=== PATIENT | male | born 1960 | race Caucasian/White ===

== ENCOUNTER 2016-08-31 13:45 | Inpatient (IN) | payer BC ==
[~2016-08-31] VITALS: Ht 190.5 cm; Wt 84.9 kg
--- NOTE | ~2016-08-31 | CON ---
PATIENT'S NAME: MARIANO ARROYO [facility] AGE: 56 Y [address] ROOM: [place] [address] [place]ATION: [facility] [place] ADMIT DATE: 08/31/2016 Consultation DISCHARGE DATE: FAMILY PHYSICIAN: PHYSICIAN, UNKNOWN ATTENDING PHYSICIAN: MICHELE DELEON Consult for Ms Nneka Greene, physician physicians assistant. This 56-year-old gentleman is referred for rehab evaluation, admitted on 08/31/2016 with sudden onset of right-sided weakness (feeling funny) with slurring of speech, taken to outside hospital. CT scan of the brain reportedly was negative for any gross abnormality; however, MRI done here on 09/01/2016 showed 2 x 1 cm diffusion restriction in the superior right cerebellum, showing signs consistent with ischemic infarct with minor nonspecific white matter changes, mostly secondary to small-vessel ischemia. 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 At the present time, he is alert and oriented. VITALS: Blood pressure 131/83, temperature 97.3, pulse 66, respirations 18. He is 6 feet 3 inches tall and weighs 84.9 kg. He can move bilateral upper and lower extremity fairly well. He still feels that he is not very much in control of the right upper extremity well. However, he can ambulate without much difficulty. He is stable on standing, very little if any leans to the right. He has good bowel and bladder control. No facial droop. He has very minimum right distant temporal visual neglect. At the present time, his speech is clear, can swallow without difficulty. Tongue and soft palate are moving symmetrical. Deep tendon reflexes are present and equal throughout. He is on the following medications: 1. Protonix. 2. Aspirin. 3. Lipitor. 4. Tylenol. 5. Humibid. 6. NaCl 0.9%. 7. Zithromax. 8. Rocephin. 9. Dulera. 10. Folic acid. 11. Thiamine. PATIENT'S NAME: MARIANO ARROYO [facility] AGE: 56 Y [address] ROOM: [place] [address] LOCATION: [facility] [place] ADMIT DATE: 08/31/2016 Consultation DISCHARGE DATE: FAMILY PHYSICIAN: PHYSICIAN, UNKNOWN ATTENDING PHYSICIAN: MICHELE DELEON 12. Lovenox. At the present time, he is doing well. I feel that he can go on outpatient basis, if he consistently continues to do well. However, if he is not able to, we will re-evaluate him for possible GIRP admission. At the present time, if he is discharged, he should not drive until he is re-evaluated. He should follow with his family physician as soon as possible and also I would like to see him in 3 weeks in my office. Thank you for this referral. All the above was explained to him. He verbalized understanding and agreement. TANYA RUBIO MD WMTed/modl /[id number] d: 09/02/16 1045 t: 09/02/16 1519, CONSULTATION REPORT
--- NOTE | ~2016-08-31 | HP ---
PATIENT'S NAME: MARIANO ARROYO [facility] AGE: 56 Y [address] ROOM: [place] [address] LOCATION: [facility] [place] ADMIT DATE: 08/31/2016 History & Physical DISCHARGE DATE: FAMILY PHYSICIAN: PHYSICIAN, UNKNOWN ATTENDING PHYSICIAN: MICHELE DELEON DATE OF SERVICE: CHIEF COMPLAINT: Right-sided weakness and slurred speech. HISTORY OF PRESENT ILLNESS: A 56-year-old gentleman with a past medical history of lung infection status post bronchoscopy done in [place] almost a year ago, presented to the [place] [facility] when his right side started feeling "funny.". He stated that he just could not control right arm and his leg and it was behaving abnormally. He did endorse having some weakness. Significant other also stated that he had been having slurred speech since then. He was taken to the [place] [facility] where a CAT scan was done, which was negative for any acute changes but does have age-related cerebellar atrophy. A chest x-ray was also done, which was abnormal and a CAT scan was done, which did show right lower lobe cavitary lesion as well as tracheal and right main stem debris. He was transferred here for further medical care. On my encounter, he stated that the funny feeling of his right arm has resolved and he does not feel any weakness anymore. His significant other still states that he still has slurred speech. He says that he has been a little more short of breath than usual. He has been producing sputum as well. He denied any weight loss or any travel history outside [facility]. He denied any fever or chills. No abdominal pain. No burning on urination. No constipation or diarrhea. He denied any dizziness or any headache at this point. ALLERGIES: THE PATIENT IS ALLERGIC TO CODEINE. PAST MEDICAL HISTORY: Significant for pulmonary infection for which he had a bronchoscopy done [place]. We will obtain those medical records. FAMILY HISTORY: Significant for coronary artery disease in dad. SOCIAL HISTORY: The patient has been a lifelong one pack per day smoker. He also consumes alcohol daily. No other illicit drug abuse noted. PATIENT'S NAME: MARIANO ARROYO [facility] AGE: 56 Y [address] ROOM: [place] [address] LOCATION: [facility] [place] ADMIT DATE: 08/31/2016 History & Physical DISCHARGE DATE: FAMILY PHYSICIAN: PHYSICIAN, UNKNOWN ATTENDING PHYSICIAN: MICHELE DELEON A REVIEW OF SYSTEMS: All other systems reviewed and were negative except for what is mentioned in the HPI. PHYSICAL EXAMINATION: VITAL SIGNS: Blood pressure 140/67, 67, afebrile, 20. GENERAL: No acute distress. Alert and oriented x3. HEENT: Head: Atraumatic, normocephalic. Eyes: Nonicteric. No pallor. Oropharynx, dry mucous membranes. CARDIOVASCULAR: S1, S2. No murmurs, gallops, or rubs. LUNGS: Bilateral scattered crackles. ABDOMEN: Soft, nontender, nondistended. Bowel sounds present. EXTREMITIES: No clubbing, cyanosis, or edema. PSYCH: Normal affect, mood, and speech. NEURO: Cranial nerves 2 through 12 intact. No motor or sensory deficit noted. LABORATORY DATA: Lab work and imaging done at outside hospital. As stated, right lower lobe upper segment cavitary lesion with surrounding inflammation as well as right mainstem debris. A CAT scan of the head showed age consistent cerebellar atrophic but no acute changes. Rest of the lab work including troponin, BMPs and CBC were unremarkable. Urinalysis and urine drug screen was also unremarkable. ASSESSMENT: 1. Slurred speech and right-sided weakness. 2. Right lower lobe cavitary pneumonia. 3. Tobaccoism. 4. Alcohol abuse. PLAN: We are going to admit this patient to the hospital. We will start intravenous fluids and antibiotics for this pneumonia. At this point, I believe this merits a pulmonary consult. We will obtain AFB, sputum samples, to rule to rule out tuberculosis. HIV testing will be done as well. Current antibiotics will be ceftriaxone and Rocephin. Based on sputum cultures, we will change those. Regarding his slurred speech, we are going to get an MRI of the head with and without contrast. Based on the results, we will decide with the Neurology consult. Thiamine folic acid supplementation. Diet, regular diet until midnight. I also have a suspicion for aspiration. We will get a modified barium swallow as well, as well as a bedside swallow study. Lovenox for DVT prophylaxis. SCDs. PATIENT'S NAME: MARIANO ARROYO [facility] AGE: 56 Y [address] ROOM: [id number] [place], [place] [address] LOCATION: [facility] [place] ADMIT DATE: 08/31/2016 History & Physical DISCHARGE DATE: FAMILY PHYSICIAN: PHYSICIAN, HERRERA ATTENDING PHYSICIAN: MICHELE DELEON MD PRAVIN KOTHARI/modl /[id number] D: [id number] T: [id number] HISTORY & PHYSICAL
--- NOTE | ~2016-08-31 | CON ---
PATIENT'S NAME: MARIANO ARROYO [facility] AGE: 56 Y [address] ROOM: [place] [address] [place] [facility] [place] ADMIT DATE: 08/31/2016 Consultation DISCHARGE DATE: FAMILY PHYSICIAN: PHYSICIAN, UNKNOWN ATTENDING PHYSICIAN: MICHELE DELEON DATE OF CONSULTATION: 09/02/2016 CHIEF COMPLAINT: Right-sided weakness and slurred speech. HISTORY OF PRESENT ILLNESS: This is a 56-year-old gentleman with a past history of lung infection. He has had previous bronchoscopies in [place] and presented to the [place] [facility] stating his right side felt funny. He said he could not control his right arm and leg and it was behaving abnormally. He did say he had some weakness also. His significant other also volunteered that he did have some slurred speech. A CAT scan was done, which did show some cerebellar atrophy, but no other findings. A chest x-ray and a CAT scan of his lungs were done and did show a right lower lobe cavitary lesion as well as tracheal and right stem debris. He was transferred here for further medical care. At the time of our exam, he states his weakness has gone, however, his gait is definitely leaning towards the right. He states his speech is back to normal. His main issues now as far as he is concerned are his shortness of breath and is producing sputum. He has denied any vision issues with this and denied any headache. Denied any weight loss. He has not traveled to any place outside [facility]. He has had no fever or chills. ALLERGIES: THE PATIENT IS ALLERGIC TO CODEINE. PRIOR MEDICAL HISTORY: Significant for pulmonary infection, for which he has had a bronchoscopy done in [place]. FAMILY HISTORY: His father did have coronary artery disease, age unknown. SOCIAL HISTORY: The patient is a lifelong one pack per day smoker. He also consumes alcohol. His alcohol use is on a daily basis. No other illicit drug use noticed. REVIEW OF SYSTEMS: All other systems reviewed and negative except for what is mentioned in the HPI. PATIENT'S NAME: MARIANO ARROYO [facility] AGE: 56 Y [address] ROOM: [place] [address] [place] [facility] [place] ADMIT DATE: 08/31/2016 Consultation DISCHARGE DATE: FAMILY PHYSICIAN: PHYSICIAN, UNKNOWN ATTENDING PHYSICIAN: MICHELE DELEON PHYSICAL EXAMINATION: VITAL SIGNS: Blood pressure 130/62, heart rate 68. He is afebrile and respirations 20. GENERAL: The patient is in no acute distress. Slightly disheveled. Alert and oriented x3. HEENT: Head is atraumatic and normocephalic. Eyes, nonicteric. No pallor. CARDIOVASCULAR: S1 and S2 without murmur, rub, or gallop. LUNGS: Bilateral scattered crackles. ABDOMEN: Soft, nontender, and nondistended with bowel sounds present. EXTREMITIES: No clubbing, cyanosis, or edema. NEURO: His cranial nerves II through XII are intact. His NIH stroke scale is as follows: 1. 1A. 0. 2. 1B. Level of consciousness questions 0. 3. 1C. LOC commands 0. 4. Gaze 0. 5. Visual 0. 6. Facial palsy 0. 7. Motor arm left 0. 8. 5B motor arm right 0. 9. 6A motor leg left 0. 10. 6B motor leg right 0. 11. Limb ataxia 1. 12. Sensory 0. 13. Best language 0. 14. Dysarthria 0. 15. Extinction and attention 0. Of note, he has slight dysmetria to his right hand and has an ataxic gait, especially to the right. The MRI did show a superior right cerebellum infarct about 2 x 1 cm. Additional testing reveals an LDL of 57. ASSESSMENT AND PLAN: 1. Acute stroke. The patient has been placed on aspirin and appropriate statin therapy. His risk factors include smoking, which we discussed at length with the patient. The patient has a strong desire to quit smoking. 2. Rehabilitation. The patient is receiving PT/OT and speech therapy currently. 3. Echocardiogram is still pending as well as carotid Doppler. If both of these tests are negative, we would consider an extended cardiac monitoring to rule out atrial fibrillation. Thank you for the opportunity to take care of this patient. Dr. Gutierrez and I examined the patient, reviewed the chart and spent a total of 40 minutes with PATIENT'S NAME: MARIANO ARROYO [facility] AGE: 56 Y [address] ROOM: [address] [address] [place] [facility] [place] ADMIT DATE: 08/31/2016 Consultation DISCHARGE DATE: FAMILY PHYSICIAN: PHYSICIAN, UNKNOWN ATTENDING PHYSICIAN: MICHELE DELEON this patient. The plan of care was relayed to the hospitalist team. The plan of care was discussed with the patient and his significant other and all questions were answered satisfactorily. KORIN LARA APRN FOR MICHELE DELEON MD PP/melody /[id number] d: 09/02/162020 t: 09/06/16 1202, CONSULTATION REPORT
--- NOTE | ~2016-08-31 | CON ---
PATIENT'S NAME: MARIANO ARROYO [facility] AGE: 56 Y [address] ROOM: [place] [address] [place]: [facility] [place]MIT DATE: 08/31/2016 Consultation DISCHARGE DATE: FAMILY PHYSICIAN: PHYSICIAN, UNKNOWN ATTENDING PHYSICIAN: MICHELE DELEON DATE OF CONSULTATION: 09/02/2016 ADDENDUM: I was asked to see this patient in Telemedicine consultation. Consultation was performed in conjunction with the nurse practitioner, Elizabeth Avendaño APRN, on 09/02/2016. History was reviewed with the nurse practitioner, chart was reviewed. Imaging reports and the images were reviewed prior to the evaluation of the patient. The patient was reassessed and examined with the nurse practitioner present. Assessment and plan was discussed and I agree with the discussed assessment and plan of care. Total time spent between nurse practitioner and physician and evaluating the patient, 40 minutes. Annemarie Gutierrez MD Neurology Telespecialist Services MD ALVA ALVAREZ/modl /[id number] CC: [employer] TELEMEDICINE d: t: 09/03/16 0839, CONSULTATION REPORT
--- NOTE | ~2016-08-31 | ECHO ---
Transthoracic Echocardiography Report (TTE) Demographics Patient Name MARIANO ARROYO Date of Study 09/02/2016 Patient Number [id number] Visit Number [id number] Date of 1960 Room Number G3223 Accession Number [id number] Gender Male Age 56 year(s) Referring Jc Yan Director Transition Christian Rey RDCS, Physician RVT Physician Interpreting Beto Barnett Fast Food Delivery Driver Physician Gabi GUTIERREZ Supervising Ordering Physician Jc Yan MD/MLP Nurse Stress Manager Equipment Conclusions Contractility Score Summary Normal Left Ventricular contractility was noted. Summary Technically difficult exam. The estimated left ventricular ejection fraction is 50-55%. Diastolic assessment reveals Grade II pseudonormal diastolic function . Normal right ventricular systolic performance. Mildly dilated right ventricle. The right atrium is mildly dilated. Dilated IVC with poor inspiratory collapse consistent with elevated RA pressure. Negative bubble study. Trivial tricuspid regurgitation by color Doppler. There is mild pulmonary hypertension. The pulmonary pressure (RVSP) is 44.38 mmHg. Procedure Type of Study TTE procedure:2D Echocardiogram. Procedure Date Date: 09/02/2016 Start: 01:06 PM Study Location: Inpatient Portable Technical Quality: Limited visualization due to lung interference. Indications:CVA. Appropriate Use Criteria: 9 Patient Status: Routine Contrast Medium: Bubble Study. HR: 61 bpm M-Mode/2D Measurements LV Diastolic Dimension: 5.03 cm LV Systolic Dimension: 3.58 cm LV Septum Diastolic: 0.8 cm LV PW Diastolic: 0.86 cm Cardiac Output: 4.81 l/min LA Dimension: 2.3 cm LVOT: 2.3 cm LVOT VTI: 19 cm RV Base: 3.88 cm LV Stroke volume: 78.9 ml RV Length: 7.75 cm TAPSE: 2.51 cm TDI-S': 14.3 cm/s Doppler Measurements AV Peak Velocity: 0.93 m/s MV Peak E-Wave: 0.73 m/s AV Peak Gradient: 3.47 mmHg MV Peak A-Wave: 0.66 m/s AV Mean Gradient: 2 mmHg MV E/A Ratio: 1.11 LVOT Peak Velocity: 0.9 m/s MV P1/2t: 94 msec TR Gradient:29.38 mmHg PV Peak Velocity: 0.75 m/s Estimated RAP:15 mmHg PV Peak Gradient: 2.26 mmHg Estimated RVSP: 44 mmHg Estimated PASP: 44.38 mmHg E' Septal Velocity: 0.07 m/s A' Septal Velocity: 0.1 m/s E' Lateral Velocity: 0.1 m/s A' Lateral Velocity: 0.16 m/s Findings Left Ventricle Diastolic assessment reveals Grade II pseudonormal diastolic function . The left ventricle is normal in size . Right Ventricle Normal right ventricular systolic performance. Mildly dilated right ventricle. Left Atrium Normal left atrial size. Right Atrium The right atrium is mildly dilated. Dilated IVC with poor inspiratory collapse consistent with elevated RA pressure. Negative bubble study. Mitral Valve Normal mitral valve structure and function. Aortic Valve Normal aortic valve structure and function. Tricuspid Valve Trivial tricuspid regurgitation by color Doppler. There is mild pulmonary hypertension. The pulmonary pressure (RVSP) is 44.38 mmHg. Pulmonic Valve Normal pulmonic valve structure and function. Pericardial Effusion No evidence of pericardial effusion. Miscellaneous Visualized portions of the aortic root and ascending aorta appear normal in size. Pleural Effusion No evidence of pleural effusion. Contractility Score LV regional wall motion:(0-Non visualized 1-Normal 2-Hypokinesis 3-Akinesis 4-Dyskinesis 5-Aneurysm) Signature dtt: Refugio Pérez dtd: 09/02/16 1656 Physician Self Edit
--- NOTE | ~2016-08-31 | DS ---
PATIENT'S NAME: MARIANO ARROYO [facility] AGE: 56 Y [address] ROOM: [address] [place], [place] [address] LOCATION: [facility] [place] ADMIT DATE: 08/31/2016 Discharge Summary DISCHARGE DATE: 09/03/2016 FAMILY PHYSICIAN: Rafael Allen MD ATTENDING PHYSICIAN: Eleazar Rose DISCHARGE DIAGNOSES: 1. Right superior cerebellum, acute ischemic infarct. 2. Chronic obstructive pulmonary disease. 3. Pzfhi-[id number] respiratory failure. 4. Tobaccoism. 5. Alcohol use. HOSPITAL COURSE: Please refer to admitting history and physical as dictated by Dr. Rose. Briefly, the patient was admitted to [facility] with right-sided weakness and slurred speech, which had subsequently resolved prior to his admission. CT of his chest showed right lower lobe cavitary pneumonia. The patient was admitted he was started on ceftriaxone 1 g IV every 24 hours. He was placed in airborne isolation. He was also started on azithromycin IV daily. MRI of his brain was ordered. Pulmonology was consulted. Pulmonology felt as though he should continue the antibiotics for now and felt as though the right upper lobe abnormality in his lung was chronic and almost certainly not TB or cancer. He was taken out of airborne isolation. His antibiotics were continued until his respiratory culture was negative. He was noted to have same right arm ataxia as well as gait ataxia. MRI did come back and show a right superior cerebellum acute ischemic infarct. Neurology was consulted. He was started on Lipitor 80 mg p.o. daily and aspirin 81 mg p.o. daily. Carotid Dopplers were obtained of his neck, which did show 1-39% stenosis bilaterally. Calcified plaque at the bulb bilaterally. Echocardiogram did show mild bleed dilated right atrium and ventricle. Negative bubble study. It did also reveal mild pulmonary hypertension. Neurology did recommend to continue the aspirin and statin as well as terminal manager monitoring specialist for possible atrial fibrillation. Dr. Villarreal was consulted, it was recommended that he continue outpatient therapies. Modified barium swallow was performed, which recommended regular diet with thin liquids. The patient did improve throughout his stay. He was initially on oxygen on admit, which was weaned off. Tobacco cessation was discussed. He was up ambulatory with therapies. Arm ataxia and gait had improved. We did attempt to set up a [facility] monitor upon discharge, however, this was not able to be arranged. We did call and discuss his care with Dr. Daniel Allen, the patient's primary care provider. We will have Dr. Allen set up the outpatient [facility] monitor as an outpatient. On 09/03/2016, the patient's vital signs were stable. He was on room air. It was felt as though he was stable to be discharged. Follow up with his family physician in 5 days. PATIENT'S NAME: MARIANO ARROYO [facility] AGE: 56 Y [address] ROOM: [address] [place], [place] [address] LOCATION: [facility] [place] ADMIT DATE: 08/31/2016 Discharge Summary DISCHARGE DATE: 09/03/2016 FAMILY PHYSICIAN: Rafael Allen MD ATTENDING PHYSICIAN: Eleazar Rose LABORATORY DATA: Sodium stable at 141 and 142, potassium 4.1, fasting glucose is 92 and 93, BUN 9 to 12, creatinine 0.6 to 0.7. Fasting lipid panel, cholesterol 111, triglycerides 55, HDL 43, and LDL 57. Hemoglobin A1c 5.2, TSH 0.490, WBCs 4.7, hemoglobin 12.9, hematocrit 40.9, platelets 151, and procalcitonin less than 0.05. Sputum culture, no acid-fast bacilli. Normal respiratory antionette. Urine negative for Legionella and strep pneumo antigens. RADIOLOGY REPORTS: MRI of the brain showed small acute infarct in the superior right cerebellum. Echocardiogram: EF 50-55%. Grade 2 pseudo, normal diastolic function. Mildly dilated right ventricle and atrium. Negative bubble study. Mild pulmonary hypertension. Carotid Dopplers right and left internal carotid artery has mild 1-39% plaque and stenosis calcific plaque at the bulb bilaterally. DISCHARGE INSTRUCTIONS: The patient will be discharged to home. Diet: As tolerated. Activity: As tolerated with cane. Followup appointment with Dr. Villarreal in 3 weeks. Followup appointment with Dr. Daniel Allen in 5 days. No driving and should not operate any mechanical devices until cleared by PCP. monitoring specialist to be arranged by Dr. Allen. DISCHARGE MEDICATIONS: 1. Aspirin 81 mg p.o. daily. 2. Lipitor 80 mg p.o. daily. 3. Folic acid 1 mg p.o. daily. 4. Vitamin B1 100 mg p.o. daily. 5. Dulera 200/5 two puffs twice daily. Thank you for allowing us to participate in the care of this patient, as he has been hospitalized at [facility]. COOPER CHEN APRN FOR MD KAREN DRAKE/modeddie /[id number] d: 09/05/16215 t: 09/09/16 1652, DISCHARGE SUMMARY
--- NOTE | ~2016-08-31 | ENPV ---
Carotid Duplex Study Demographics Patient Name MARIANO ARROYO Date of Study 09/02/2016 Patient Number [id number] Gender Male Date of 1960 Age 56 Visit Number [id number] Height 75 Accession Number [id number] Weight 187 Referring Jc Calhoun MD Physician Physician Physician Ordering Physician Jc Yan Elementary Assistant Teacher [employer] Repairer Jose A Khalil BS, RT Conclusions Summary The right internal carotid artery has mild, 1-39%, plaque and stenosis. The left internal carotid artery has mild, 1-39%, plaque and stenosis. The right vertebral artery is present with antegrade flow. The left vertebral artery is present with antegrade flow. Calcific plaque at the bulb bilaterally. Procedure Type of Study: Cerebral:Carotid, Carotid Doppler Bilateral. Indications for Study:Stroke. Patient Status:Routine. Study Location:Inpatient Portable. Technical Quality:Adequate visualization. Velocities are measured in cm/s ; Diameters are measured in cm Carotid Right Measurements Carotid Left Measurements + +--------+--------+ + + + +--------+ --------+ + + !Location !PSV !EDV !Angle !%Stenosis ! !Location !PSV ! EDV !Angle !%Stenosis ! + +--------+--------+ + + + +--------+ --------+ + + !Prox CCA !83 !18 !60 ! ! !Prox CCA !108 ! 24 !60 ! ! + +--------+--------+ + + + +--------+ --------+ + + !Dist CCA !90 !23 !60 ! ! !Dist CCA !90 ! 28 !60 ! ! + +--------+--------+ + + + +--------+ --------+ + + !Prox ICA !80 !24 !60 ! ! !Prox ICA !77 ! 26 !60 ! ! + +--------+--------+ + + + +--------+ --------+ + + !Dist ICA !86 !30 !60 ! ! !Dist ICA !76 ! 26 !60 ! ! + +--------+--------+ + + + +--------+ --------+ + + !Prox ECA !98 ! !60 ! ! !Prox ECA !85 ! !60 ! ! + +--------+--------+ + + + +--------+ --------+ + + !Vertebral !39 ! !60 ! ! !Vertebral !58 ! !60 ! ! + +--------+--------+ + + + +--------+ --------+ + + !Subclavian !109 ! !60 ! ! !Subclavian !149 ! !60 ! ! + +--------+--------+ + + + +--------+ --------+ + + - There is antegrade vertebral flow noted on the right side. - There is antegrade verte bral flow noted on the left side. - Add'l Measurements:ICAPSV/CCAPSV 1.03.ICAEDV/CCAEDV 1.69. - Add'l Measurements:ICAPS V/CCAPSV 0.71.ICAEDV/CCAEDV 1.12. Signature dtt: WYATT ATKINSON dtd: 09/02/16 0840 Physician Self Edit
--- NOTE | 2016-08-31 17:24 | NUR ---
Admission note: Patient is admitted from [place] per EMS for right sided weakness and encephalopathy. Stroke screen was negative. Patient is not complaining of weakness upon arrival. CAM assessment is normal. Has no known allergies. Currently does not take any medications. Pt states has been told that he has COPD but does not have inhalers or treatment for this. Pt has a hx of psoriasis. Skin assessment is negative except for red dots to upper body, looks like bug bites. Pt reported vomiting this morning, has not had any since then, no complaints of nausea or pain. Has had headaches but none today. Does smoke 1pk/day. Had left great toe bone removed. Has top dentures, no bottom teeth. Does have an occasional congested cough.Pt states on occasion he will get some yellow phlegm up. VSS, on 2 liters per NC on arrival. Has IV to left anterior FA, currently saline locked. Family at bedside.
[2016-08-31 20:54] LABS: CREATININE 0.7 mg/dL (0.6-1.3); ESTIMATED GFR (MDRD EQUATION) > 60
--- NOTE | 2016-09-01 05:05 | NUR ---
Significant Event: A/O X3 AND COOPERATIVE WITH CARES. PLACED IN [place]/CONTACT ISOLATION DUE TO ABNORMAL CT FINDINGS (CAVITARY LESION ON LUNG) AND ONGOING TESTING (AFB SPUTUM SAMPLES). TRIED TO COLLECT 1 SPUTUM SAMPLE TONIGHT BUT LAB SAID THAT THERE WAS TOO MUCH SALIVA, SO STILL NEED [address] RAMON CONSULTED AND WILL SEE THIS AM. WILL HAVE MRI OF BRAIN THIS AM. PT/OT TO FOLLOW. CURRENTLY NPO IN CASE MD WANT TO DO ANYTHING. LUNG SOUNDS CLEAR/DIMINISHED IN UPPER LOBES AND CRACKLES IN BASED. HAS LOOSE COUGH WITH OCCASIONAL THICK YELLOW SPUTUM. IV TO L) FA FLUSHES WELL. IV FLUIDS INFUSING AT 150ML/HR FOR 1.5 LITERS (1ST GOING). ON IV ATB. COLLECTED UA. ON RT TREATMENTS. NO CONFUSION NOTED ON MY SHIFT, PATIENT REALLY TIRED. REALLY NO SLURRED SPEECH NOTED EITHER. Follow up:
[2016-09-01 06:01] LABS: BASOPHIL # 0.1 K/uL (0.0-0.2); BASOPHIL % 1.1 %; EOSINOPHIL # 0.1 K/uL (0.0-0.5); EOSINOPHIL % 1.8 %; HEMATOCRIT 43.7 % (37.0-53.0); HEMOGLOBIN 13.5 g/dL (12.0-17.0); IMMATURE GRANULOCYTE % 0.2 %; LYMPHOCYTE # 1.3 K/uL (0.8-4.0); LYMPHOCYTE % 28.5 %; MCH 30.1 pg (27.0-34.0); MCHC 30.9 gm/dL (32.0-36.5); MCV 97.5 fl (83.0-98.0); MONOCYTE # 0.4 K/uL (0.0-1.0); MONOCYTE % 8.8 %; MPV 10.5 fl (9.4-12.4); NEUTROPHIL # (ANC) 2.7 K/uL (1.4-9.0); NEUTROPHIL % 59.6 %; NRBC % 0 /100WBC (0-0.00); PLATELET COUNT 158 K/uL (150-450); RBC 4.48 M/uL (4.00-6.00); RDW-CV 14.5 % (11.9-14.6); WBC 4.5 K/uL (4.0-11.0)
[2016-09-01 06:16] LABS: ANION GAP 7.1 (10.0-19.0); BLOOD UREA NITROGEN 9 mg/dL (6-24); CALCIUM 8.1 mg/dL (8.5-10.5); CHLORIDE 109 mMol/L (96-110); CO2 30 mMol/L (22-32); CREATININE 0.7 mg/dL (0.6-1.3); ESTIMATED GFR (MDRD EQUATION) > 60; POTASSIUM 4.1 mMol/L (3.7-5.1); SODIUM 142 mMol/L (135-145)
--- NOTE | 2016-09-01 15:35 | NUR ---
Introduced self/role to patient, his Krissy and their two daughters. The only need they could think of was possibly a walker. Gave them the list of DME providers in [place] and put a script next to his orders for a front wheeled walker. Denied any other barriers to going home or at home. Add my name to his marker board, will continue to follow.
--- NOTE | 2016-09-01 17:29 | NUR ---
Significant Event:Is A/O.Out of isolation.Sputum x1 to lab.Alittle slurred speech.LILLIAN.Hand grasps equal.Tele put on.IV Lt.forearm.Up with 1 and walk.Found he had a stroke before coming here.Eating & drinking well.Is someone unsteady on feet.Do neuro checks & vitals every 2hrs.Next due at 1900.No c/o pain. Follow up:
--- NOTE | 2016-09-02 05:08 | NUR ---
SIGNIFICANT EVENT: Pt alert/oriented this shift. VSS on RA. Regular diet. Q4h vitals and neuro checks. NTU nurse will come over 1x per shift to complete stroke checklist. PIV to R) FA infusing intermittent IV antibiotics. 1PA with walker and gaitbelt for transfers. Spouse at bedside. Pleasant and cooperative with cares.
[2016-09-02 05:53] LABS: BASOPHIL # 0.1 K/uL (0.0-0.2); BASOPHIL % 1.1 %; EOSINOPHIL # 0.1 K/uL (0.0-0.5); HEMATOCRIT 40.9 % (37.0-53.0); HEMOGLOBIN 12.9 g/dL (12.0-17.0); IMMATURE GRANULOCYTE % 0.2 %; LYMPHOCYTE # 1.4 K/uL (0.8-4.0); LYMPHOCYTE % 28.5 %; MCH 30.7 pg (27.0-34.0); MCHC 31.5 gm/dL (32.0-36.5); MCV 97.4 fl (83.0-98.0); MONOCYTE # 0.5 K/uL (0.0-1.0); MONOCYTE % 10.1 %; MPV 10.4 fl (9.4-12.4); NEUTROPHIL # (ANC) 2.7 K/uL (1.4-9.0); NEUTROPHIL % 57.1 %; NRBC % 0 /100WBC (0-0.00); PLATELET COUNT 151 K/uL (150-450); RDW-CV 14.6 % (11.9-14.6); WBC 4.7 K/uL (4.0-11.0)
[2016-09-02 06:02] LABS: ANION GAP 8.1 (10.0-19.0); BLOOD UREA NITROGEN 12 mg/dL (6-24); CHLORIDE 108 mMol/L (96-110); CO2 29 mMol/L (22-32); CREATININE 0.6 mg/dL (0.6-1.3); ESTIMATED GFR (MDRD EQUATION) > 60; POTASSIUM 4.1 mMol/L (3.7-5.1); SODIUM 141 mMol/L (135-145)
--- NOTE | 2016-09-02 14:52 | NUR ---
CONSULT RECEIVED PER ROUTINE STROKE ORDERS. IF APPROPRIATE, DIET ED WILL COMPLETED PRIOR TO D/C.
--- NOTE | 2016-09-02 15:51 | NUR ---
Significant Event:Is A/O.Has had no c/o pain.Hand grasps are equally strong.LILLIAN.States has more control of his Rt.arm/hand and Rt.leg today.Has been working with P.T.and O.T.Has tele on---no calls.States having some diarrhea today.Voiding ok.Eating well.Amb.with use of cane.Some weakness Rt.side.Had swallowing study today. Follow up:
--- NOTE | 2016-09-03 03:56 | NUR ---
Pt. alert and oriented. VSS. RA. 1 assist. R) side weakness. Strong hand grisps, bilaterally. Nurse to come from NTU x1 per shift to do stroke checklist. Telemetry - no calls. IV to R) forearm - saline locked. Intermittant IV antibx. Uses urinal. Denies pain. Coughs up phlegm. Eating well. Will work with outpatient PT when discharged. at bedside. Cooperative and pleasant with cares.
--- NOTE | 2016-09-03 11:00 | NUR ---
Followed up with patient and his . Still denied any needs or barriers to going home. stated she thinks he will only need a cane. May discharge today, they are aware.
[2016-09-03] MEDS ORDERED: ASPIRIN (CHILDR81 MG PO (13:51)
[2016-09-03] MEDS ORDERED: LIPITOR80 MG PO (13:53)
[2016-09-03] MEDS ORDERED: THIAMINE HCL100 MG PO (13:54)
[2016-09-03] MEDS ORDERED: FOLIC ACID1 MG PO (13:54)
[2016-09-03] MEDS ORDERED: DULERA 200 MCG/51 EA INH (13:55)
--- NOTE | 2016-09-03 14:46 | NUR ---
DISCHARGE: D: ORDERS RECEIVED FOR THE PATIENT TO BE DISCHARGED TO HOME TODAY WITH HIS . I: DISMISSAL INSTRUCTIONS WERE PREPARED AND REVIEWED WITH THE PATIENT AND HIS VIRTUALLY. THE FOLLOWING INFORMATION WAS DISCUSSED INCLUDING [employer]RAMES TEACHING SHEETS PROVIDED: WHAT IS ISCHEMIC STROKE, SYMPTOMS OF STROKE, WHAT IS EVENT MONITORING, ASPIRIN, LIPITOR, FOLIC ACID, THIAMINE, DULERA AND PREVENTING DVT. REVIEWED FOLLOW UP APPOINTMENTS AND ALL NEW MEDICATION INCLUDING SIDE EFFECTS. R: THE PATIENT AND HIS BOTH VERBALIZED UNDERSTANDING OF THE DISMISSAL EDUCATION AT THE TIME OF TEACHING WITH NO FURTHER QUESTIONS. P: THE ABOVE INFORMATION WAS SHARED WITH THE PRIMARY NURSE AND THE CHARGE NURSE THAT THE PATIENT'S DISMISSAL EDUCATION WAS COMPLETED. THE PATIENT IS READY FOR DISCHARGE TO THE FRONT DOOR VIA WHEEL CHAIR BY NURSING STAFF.
--- NOTE | 2016-09-03 19:11 | NUR ---
Pt discharged to go home with spouse at 1645. Pt VS stable. Denies pain, Denies any weakness, numbness, or tingling Rt arm or leg. Strength equal with Rt grasps, arms and leg movement. Pt IV removed. He has been up and about room with cane and has script to get one. Pt speech understandable and pt spouse days sounds like his normal. Pt alert, oriented. Has occasional loose productive cough. Discussed outpatient PT, smoking cessation. Pt discharged with spouse. Has belongings. In stable condition.
== END 2016-09-03 16:45 | disposition disaster alternative care site (69) | DRG 64 ==
LOC: GMSU 16:04
PROVIDERS: Nurse Practitioner Family; ADMIT Internal Medicine
DX: I63.9 Cerebral infarction, unspecified (principal); J18.8 Other pneumonia, unspecified organism; J96.20 Acute and chronic respiratory failure, unspecified whether with hypoxia or hypercapnia; G81.91 Hemiplegia, unspecified affecting right dominant side; R47.81 Slurred speech; F17.200 Nicotine dependence, unspecified, uncomplicated; F10.10 Alcohol abuse, uncomplicated; R27.0 Ataxia, unspecified; J44.9 Chronic obstructive pulmonary disease, unspecified
CPT/HCPCS: A9576; J0456; J0696; J1650; J2001; J7030; J7040; J7050